=== PATIENT | female | born 1995 | race Caucasian/White ===

== ENCOUNTER 2016-11-25 23:35 | Emergency (ER) | payer OTHER ==
--- NOTE | 2016-11-26 00:03 | ER PHYSICIAN DOCUMENTATION ---
Physician Documentation [facility] Name:Carlos Espinosa Age:21 yrs Sex:Female :1995 Arrival Date:11/25/2016 Time:23:34 BedTrauma-A Private MD: Jose R Gonzalez Disposition: 11/25/16 23:52 Discharged to Home/Self Care. Impression: Transient Global Amnesia. - Condition is Good. - Discharge Instructions: Consciousness Disorder - ALTERED LOC. - Medical Reconciliation form form. - Follow up: Georges Ordoñez MD; When: 2 - 3 days; Reason: Continuance of care. - Problem is new. - Symptoms have improved. HPI: 11/26 00:00 This 21 yrs old Female presents to ER via Walk In with complaints of Altered jm Mental Status. 00:00 The patient presents with confusion. Onset: The symptom(s)/episode began/occurred jm today. Possible causes: unknown. Associated signs and symptoms: Pertinent positives: confusion, shortness of breath, Pertinent negatives: diarrhea, dizziness, headache. The patient has not experienced similar symptoms in the past. The patient has not recently seen a physician. Pt was forgetful and had slurred speech, so her friends brought her in despite pt telling them not to. Pt c/o of mild SOB. Pt is not on control. . Historical: - Allergies: No known drug Allergies; - Tetanus: < 10 years. - Ebola Screening: : Patient negative for fever greater than or equal to 101.5 degrees Fahrenheit, and additional compatible Ebola Virus Disease symptoms. Patient denies exposure to infectious person. Patient denies travel to an Ebola-affected area in the 21 days before illness onset. No symptoms or risks identified at this time. . - Immunization history: Flu Vaccine None. - Social history: Smoking status: Patient states was never smoker of tobacco. ROS: 00:00 Constitutional: Negative for fatigue, fever, malaise. jm 00:00 Eyes: Negative for blurry vision. 00:00 Cardiovascular: Negative for chest pain. 00:00 Respiratory: Positive for shortness of breath. 00:00 Neuro: Positive for altered mental status, Negative for headache. Exam: 00:00 Constitutional: The patient appears alert, awake, comfortable. jm 00:00 Eyes: Pupils: equal, round, and reactive to light and accomodation, Extraocular movements: intact throughout. 00:00 Cardiovascular: Rate: normal, Rhythm: regular. 00:00 Respiratory: Respirations: normal, Breath sounds: are normal. 00:00 Neuro: Orientation: to person, place, time & situation. Mentation: is normal, Memory: is normal, Cerebellar function: is grossly normal, Motor: is normal, Gait: is steady. 00:00 Psych: Behavior/mood is pleasant, cooperative, Affect is flat. Vital Signs: 11/25 23:39 BP 138 / 73; Pulse 78; Resp 19; Temp 97.8; Pulse Ox 96% ; Weight 58.97 kg; Height 5 ft. bw2 4 in. (162.56 cm); Pain 0/10; 23:39 Body Mass Index 22.31 (58.97 kg, 162.56 cm) bw2 MDM: 23:39 Patient medically screened. ayleen 11/26 03:13 Differential Diagnosis: drama, TGA. Data reviewed: vital signs, nurses notes, lab test result(s), and as a result, I will discharge patient. Counseling: I had a detailed discussion with the patient and/or guardian regarding: the historical points, exam findings, and any diagnostic results supporting the discharge/admit diagnosis, lab results, the need for outpatient follow up, with the patient's primary care provider. ED course: Pt seems fine to me. She is slurring her words a bit. When told she looks fine. She got excited and happy to yell at her friend and say, See, I told you I was fine!". Pt DC'd. . Dispensed Medications: No medications were administered Point of Care Testing: Blood Glucose: 11/25 23:47 Blood Glucose: 105 mg/dL; lc Ranges: Critical Glucose Levels:Adult <50 mg/dl or >400 mg/dl <40 mg/dl or >180 mg/dl Signatures: Jose R Long MD MD jm Wisely, Beth 2
--- NOTE | 2016-11-26 00:03 | ER NURSING DOCUMENTATION ---
Nurse's Notes [facility] Name:Carlos Espinosa Age:21 yrs Sex:Female :1995 Arrival Date:11/25/2016 Time:23:34 BedTrauma-A Private MD: Diagnosis:Transient Global Amnesia Presentation: 11/25 23:36 Presenting complaint: Friend states: that about an hour ago pt was not acting herself. bw2 that she was slurring her speech and acting tired. while speaking with pt she kept her eyes closed. pt denies pain or trauma at this time. Transition of care: patient was not received from another setting of care. 23:36 Acuity: NILO 3 bw2 23:36 Method Of Arrival: Walk In 2 Triage Assessment: 23:38 General: Appears in no apparent distress, Behavior is flat, uncooperative. Pain: Denies bw2 pain. Neuro: No deficits noted. Reports slurred speech . Historical: - Allergies: No known drug Allergies; - Tetanus: < 10 years. - Ebola Screening: : Patient negative for fever greater than or equal to 101.5 degrees Fahrenheit, and additional compatible Ebola Virus Disease symptoms. Patient denies exposure to infectious person. Patient denies travel to an Ebola-affected area in the 21 days before illness onset. No symptoms or risks identified at this time. . - Immunization history: Flu Vaccine None. - Social history: Smoking status: Patient states was never smoker of tobacco. Screenin:40 Infectious Disease Risk None. Abuse screen: Denies threats or abuse. Nutritional bw2 screening: No deficits noted. Assessment: 23:40 See Triage Assessment done by same RN. bw2 Vital Signs: 23:39 BP 138 / 73; Pulse 78; Resp 19; Temp 97.8; Pulse Ox 96% ; Weight 58.97 kg; Height 5 ft. bw2 4 in. (162.56 cm); Pain 0/10; 23:39 Body Mass Index 22.31 (58.97 kg, 162.56 cm) bw2 ED Course: 23:34 Patient arrived in ED. em3 23:36 Randi Lawrence is Primary Nurse. bw2 23:38 Triage completed. bw2 23:40 Valuables Remains with patient Bed in low position. Side rails up X2. bw2 23:43 Jose R Long MD is Attending Physician. ayleen 23:52 Georges Ordoñez MD is Referral Physician. ayleen Administered Medications: No medications were administered Point of Care Testing: Blood Glucose: 23:47 Blood Glucose: 105 mg/dL; Ranges: Outcome: :52 Discharge ordered by . ayleen 11/26 00:02 Discharged to home ambulatory, with friend. bw2 Condition: good Discharge Assessment: Patient awake, alert and oriented x 3. No cognitive and/or functional deficits noted. Patient verbalized understanding of disposition instructions. Discharge instructions given to patient, friend, Instructed on discharge instructions, follow up and referral plans. Demonstrated understanding of instructions. 00:03 Patient left the ED. bw2 Signatures: Radha Andrea RN RN Jose R Carlin MD MD jm Meiklejohn, Eric [facility] Randi Lawrence bw2
== END 2016-11-26 00:03 | disposition home or self-care (01) ==
LOC: ER 23:35
DX: G45.4 Transient global amnesia (principal); R06.02 Shortness of breath; R41.82 Altered mental status, unspecified
CPT/HCPCS: 99283